=== PATIENT | male | born 1950 | race Caucasian/White ===

== ENCOUNTER 2021-07-21 12:40 | Observation (INO) | payer OTHER ==
[~2021-07-21] VITALS: Ht 185.4 cm; Wt 106.1 kg
[2021-07-21 13:39] LABS: HEMOGLOBIN 14.2 gm/dl (14.0-17.5); RED BLOOD COUNT 4.55 M/UL (4.20-5.50); WHITE BLOOD COUNT 9.1 K/UL (4.5-11.0)
[2021-07-21 14:01] LABS: BUN/CREATININE RATIO 11 (0-10)
[2021-07-21] MEDS ORDERED: AMIODARONE HCL200 MG PO (16:17)
[2021-07-21] MEDS ORDERED: LORATADINE10 MG PO (16:17)
[2021-07-21] MEDS ORDERED: ENTRESTO 24 MG1 EACH PO (16:17)
[2021-07-21] MEDS ORDERED: BRILINTA90 MG PO (16:18)
[2021-07-21] MEDS ORDERED: ATORVASTATIN CA40 MG PO (16:18)
[2021-07-21] MEDS ORDERED: FUROSEMIDE20 MG PO (16:18)
[2021-07-21] MEDS ORDERED: CARVEDILOL6.25 MG PO (16:18)
[2021-07-21] MEDS ORDERED: FLOMAX 0.4 MG0.4 MG PO (16:18)
[2021-07-21] MEDS ORDERED: ASPIRIN EC81 MG PO (16:19)
[2021-07-21] MEDS ORDERED: POTASSIUM CHLO10 ME1 PO (16:19)
[2021-07-21] MEDS ORDERED: VITAMIN D325 MC6 PO (16:20)
--- NOTE | 2021-07-22 16:09 | NUR ---
pt ambulated in hallway with physical therapy tolerating well. he is sitting in chair at the bedside at thsi time. no distress noted.
--- NOTE | 2021-07-22 16:19 | NUR ---
orthostatics supine 133/71 sitting 111/58 standing 124/45 after ambulating 102/55
--- NOTE | 2021-07-23 13:30 | NUR ---
PT SIGNED CONSENT FOR ICD PLACEMENT, CHEST CLIPPED AND BACTROBAN APPLIED. DENIES NEEDS OR C/O AT THIS TIME
[2021-07-23] MEDS ORDERED: LEVOFLOXACIN500 MG PO (15:35)
[2021-07-23] MEDS ORDERED: HYDROCODON-ACE1 EAC4 PO (15:35)
--- NOTE | 2021-07-23 15:56 | NUR ---
REPORT CALLED ANDPT MOVED TO U.
--- NOTE | 2021-07-23 18:58 | NUR ---
PATIENT RECEIVED TO ROOM FROM [facility] AT APPROX 1600. SLING AND SWATH IN PLACE TO LEFT ARM/SHOULDER. BULKY DRESSING IN PLACE TO LEFT SHOULDER. PULSES ARE GOOD TO LEFT RADIAL PULSE. LEFT AC IV. NO COMPLAINTS OF PAIN AT THIS TIME. PATIENT IS ALERT AND ORIENTED X3 AND AT BEDSIDE.
--- NOTE | 2021-07-24 11:22 | NUR ---
PATIENT STATES HE HASNT PEED SINCE YESTERDAY. BLADDER SCAN REVEALS 650ML URINE. CALL MD [place], PATIENT TO BE STRAIGHT CATHED AND RESTART FLOMAX. PATIENT REFUSES TO BE CATHETERIZED IN ANY FORM AFTER EXPLAINING IN DETAIL THE PROCEDURE AND PURPOSE. PATIENT DID TAKE THE FLOMAX. INFORMED MD PATIENT REFUSES STRAIGHT CATH.
[2021-07-24] MEDS ORDERED: CARVEDILOL3.125 MG PO (12:30)
== END 2021-07-24 14:28 | disposition home or self-care (01) ==
LOC: ER1 12:40 → CDU 15:11 → MED SURG 4 15:11 → PROG CARE 07-23 15:35
PROVIDERS: Emergency Medicine; ADMIT Internal Medicine Infectious Disease
PROC: 0JH608Z Insertion of Defibrillator Generator into Chest Subcutaneous Tissue and Fascia, Open Approach (ICD-10-PCS; principal; 2021-07-23)
PROC: 02H63KZ Insertion of Defibrillator Lead into Right Atrium, Percutaneous Approach (ICD-10-PCS; 2021-07-23)
PROC: 02HK3KZ Insertion of Defibrillator Lead into Right Ventricle, Percutaneous Approach (ICD-10-PCS; 2021-07-23)
DX: I11.0 Hypertensive heart disease with heart failure (principal); I50.22 Chronic systolic (congestive) heart failure; I25.5 Ischemic cardiomyopathy; I49.5 Sick sinus syndrome; I48.91 Unspecified atrial fibrillation; I44.0 Atrioventricular block, first degree; I25.10 Atherosclerotic heart disease of native coronary artery without angina pectoris; I25.2 Old myocardial infarction; I69.354 Hemiplegia and hemiparesis following cerebral infarction affecting left non-dominant side; E78.5 Hyperlipidemia, unspecified; N40.1 Benign prostatic hyperplasia with lower urinary tract symptoms; R33.8 Other retention of urine; Z20.822 Contact with and (suspected) exposure to COVID-19; Z79.82 Long term (current) use of aspirin; Z79.899 Other long term (current) drug therapy; Z95.1 Presence of aortocoronary bypass graft; Z95.5 Presence of coronary angioplasty implant and graft
CPT/HCPCS: 33249; 70450; 71045; 80053; 82550; 82553; 83735; 83874; 83880; 84443; 84484; 85025; 93005; 93641; 97162; 99152; 99153; 99285; C1721; C1895; C1898; G0378; J1200; J1644; J2250; J3010; J3370; J7040; J7050; J7070; Q9965; U0002